=== PATIENT | male | born 1940 | race Caucasian/White ===

== ENCOUNTER 2023-08-05 15:09 | Inpatient (IN) ==
[2023-08-05] MEDS ORDERED: Enoxaparin 40 MG/0.4 ML SYR SUBCUT SCH (16:00)
[2023-08-05 17:03] LABS: ABS Lymphocytes 1.2 10^3/uL (1.0-4.8); ABS Monocytes 0.9 10^3/uL (0.0-1.1); ABS Neutrophils 7.9 10^3/uL (1.5-7.6); ABS Nucleated RBC 0.02 10^3/ul; Eosinophil % 0.3 %; Hematocrit 41.5 % (38-53); Hemoglobin 14.4 g/dL (13.2-16.3); Lymphocyte % 12.3 %; Mean Corpuscular Hemoglobin 30.5 pg (27-33); Mean Corpuscular Hgb Conc 34.6 g/dL (31-36); Mean Corpuscular Volume 88.2 fL (80-97); Mean Platelet Volume 8.5 fL (7.5-11.2); Nucleated Red Blood Cells % 0.2 %/100WBC (0.0-0.8); Platelet Count 327 10^3/uL (150-450); Red Blood Count 4.71 10^6/uL (4.06-5.63); Red Cell Distribution Width 13.7 % (12-17)
[2023-08-05 17:47] LABS: Anion Gap 15 mmol/L (2-16); CO2 Carbon Dioxide 19 mmol/L (22-32); Calcium 9.2 mg/dL (8.6-10.3); Chloride 101 mmol/L (101-111); Sodium 135 mmol/L (135-145)
[2023-08-05 17:53] LABS: Blood Urea Nitrogen 35 mg/dL (6-24); Cholesterol 166 mg/dL; Creatinine, Serum 1.33 mg/dL (0.67-1.17); Glucose 115 mg/dL (70-100); HDL Cholesterol 41.2 mg/dL; High Sens Troponin Baseline 3396 pg/mL (<20); LDL Cholesterol 105 mg/dL; Triglycerides 97 mg/dL; eGFR CKD-EPI 52.7 (>60)
[2023-08-05 18:17] LABS: CRP High Sensitivity > 80.00 mg/L (<2.00)
[2023-08-05] MEDS: Aspirin EC 81 mg TAB.EC (enteric coated) PO SCH (20:40)
[2023-08-05] MEDS: Enoxaparin 100 MG/ML SYR SUBCUT SCH (20:40)
[2023-08-05 21:14] LABS: High Sensitivity Troponin 1 Hr 3248 pg/mL (<20)
[2023-08-05 23:15] LABS: TSH Ultra Thyroid Stim Horm 4.89 mcIU/mL (0.34-5.60)
[2023-08-05 23:21] LABS: Ferritin 224.8 ng/mL (24-336)
[2023-08-06 06:10] LABS: ABS Basophils 0.1 10^3/uL (0.0-0.1); ABS Eosinophils 0.3 10^3/uL (0.0-0.5); ABS Lymphocytes 1.5 10^3/uL (1.0-4.8); ABS Monocytes 0.8 10^3/uL (0.0-1.1); ABS Neutrophils 4.9 10^3/uL (1.5-7.6); ABS Nucleated RBC 0.01 10^3/ul; Eosinophil % 4.6 %; Hematocrit 41.3 % (38-53); Hemoglobin 14.4 g/dL (13.2-16.3); Lymphocyte % 20.1 %; Mean Corpuscular Hemoglobin 30.6 pg (27-33); Mean Corpuscular Hgb Conc 34.9 g/dL (31-36); Mean Corpuscular Volume 87.6 fL (80-97); Mean Platelet Volume 8.3 fL (7.5-11.2); Nucleated Red Blood Cells % 0.1 %/100WBC (0.0-0.8); Platelet Count 313 10^3/uL (150-450); Red Blood Count 4.71 10^6/uL (4.06-5.63); Red Cell Distribution Width 13.9 % (12-17); White Blood Count 7.7 10^3/uL (3.6-10.2)
[2023-08-06 06:42] LABS: Calcium 8.8 mg/dL (8.6-10.3); Creatinine, Serum 1.31 mg/dL (0.67-1.17); Magnesium 2.1 mg/dL (1.9-2.7); Potassium 3.8 mmol/L (3.5-5.0); eGFR CKD-EPI 53.7 (>60)
[2023-08-06] MEDS: Enoxaparin 100 MG/ML SYR SUBCUT SCH (09:16)
[2023-08-06] MEDS: Aspirin EC 81 mg TAB.EC (enteric coated) PO SCH (09:17)
[2023-08-06] MEDS ORDERED: Fluticasone NASAL SPRAY 50MCG 16 gm SPRAY BTL BOTH NARES ONE (11:06)
[2023-08-06] MEDS: Enoxaparin 80 MG/0.8 ML SYR SUBCUT SCH (20:16)
[2023-08-07 07:06] LABS: Calcium 8.7 mg/dL (8.6-10.3); Creatinine, Serum 1.44 mg/dL (0.67-1.17); Magnesium 2.2 mg/dL (1.9-2.7); eGFR CKD-EPI 47.9 (>60)
[2023-08-07 07:12] LABS: Potassium 4.2 mmol/L (3.5-5.0)
[2023-08-07] MEDS: Aspirin EC 81 mg TAB.EC (enteric coated) PO SCH (08:43)
[2023-08-07] MEDS: Enoxaparin 80 MG/0.8 ML SYR SUBCUT SCH (08:45)
[2023-08-07] MEDS ORDERED: Al Hydrox/Mg Hydrox/Simet LIQ 30 ML UDC PO PRN (22:22)
[2023-08-07 22:52] LABS: High Sensitivity Troponin 1 Hr 1070 pg/mL (<20)
[2023-08-08 06:30] LABS: Activated Partial Thrombo Time 33.5 seconds (26.0-38.0); INR 1.14 (0.83-1.13)
[2023-08-08 06:42] LABS: Creatinine, Serum 1.35 mg/dL (0.67-1.17); Magnesium 2.2 mg/dL (1.9-2.7); Potassium 3.8 mmol/L (3.5-5.0); eGFR CKD-EPI 51.8 (>60)
[2023-08-08] MEDS ORDERED: Midazolam 5 mg/5 ml VIAL 1 mg/ml 5 ml VIAL (5 mg) ONE (08:35)
[2023-08-08] MEDS ORDERED: Heparin 1,000 UNIT/ML 10 ml (10,000 UNITS) CATHLAB/DIALYSIS ONE (08:35)
[2023-08-08] MEDS ORDERED: Heparin 2 UNITS/ML 1000 mls 1,000 ML IV ONE ×2 (08:35→08:49)
[2023-08-08] MEDS ORDERED: fentaNYL 100 mcg/2 ml 50 MCG/ML VIAL ONE (08:35)
[2023-08-08] MEDS ORDERED: nitroGLYCERIN DRIP 25,000 MCG/250 ML BTL ONE (08:35)
[2023-08-08] MEDS ORDERED: Lidocaine 1% MPF 5 ML VIAL ONE (08:36)
[2023-08-08] MEDS ORDERED: niCARdipine 0.1MG/ML IVPREMIX 20 MG/200 ML BAG IV ONE (08:36)
[2023-08-08] MEDS ORDERED: Iohexol 350 (CONTRAST) 200 ML MDV IV ONE (08:36)
[2023-08-08] MEDS ORDERED: Midazolam 10 mg/10 ml VIAL 1 mg/ml 10 ml VIAL (10 mg) IV SLOW PU ONE (08:48)
[2023-08-08] MEDS ORDERED: Naloxone 0.4 mg VIAL 0.4 mg/ml 1 ml VIAL IV PUSH PRN (08:48)
[2023-08-08] MEDS ORDERED: Flumazenil 0.5 mg/5 ml 0.1 MG/ML 5 ml VIAL IV PRN (08:48)
[2023-08-08] MEDS ORDERED: fentaNYL 100 mcg/2 ml 50 MCG/ML VIAL IV SLOW PU ONE (08:48)
[2023-08-08] MEDS ORDERED: Iohexol 350 (CONTRAST) 100 ML PAK IV ONE (09:19)
[2023-08-08] MEDS: Aspirin EC 81 mg TAB.EC (enteric coated) PO SCH (10:11)
[2023-08-08 17:33] VITALS: BP 99/66
== END 2023-08-08 17:40 | disposition short-term general hospital (02) | DRG 282 ==
LOC: ED 15:09 → EDHOLD 15:19 → MED 16:28
PROVIDERS: ADMIT Internal Medicine; ATTEND Internal Medicine

== ENCOUNTER 2023-11-01 12:27 | Inpatient (IN) ==
[2023-11-01 13:01] LABS: INR 1.1 (0.83-1.13)
[2023-11-01 13:27] LABS: ABS Basophils 0.1 10^3/uL (0.0-0.1); ABS Eosinophils 0.1 10^3/uL (0.0-0.5); ABS Lymphocytes 0.6 10^3/uL (1.0-4.8); ABS Monocytes 0.8 10^3/uL (0.0-1.1); ABS Neutrophils 5.6 10^3/uL (1.5-7.6); Eosinophil % 1.4 %; Hematocrit 20.2 % (38-53); Hemoglobin 6.7 g/dL (13.2-16.3); Mean Corpuscular Hemoglobin 27.5 pg (27-33); Mean Corpuscular Hgb Conc 33.2 g/dL (31-36); Mean Corpuscular Volume 82.9 fL (80-97); Mean Platelet Volume 7.8 fL (7.5-11.2); Platelet Count 323 10^3/uL (150-450); Red Blood Count 2.44 10^6/uL (4.06-5.63); Red Cell Distribution Width 15.5 % (12-17); White Blood Count 7.1 10^3/uL (3.6-10.2)
[2023-11-01 13:46] LABS: Albumin 4.1 g/dL (3.2-5.2); Albumin/Globulin Ratio 1.5 (1-3); Calcium 9.3 mg/dL (8.6-10.3); Creatinine, Serum 1.48 mg/dL (0.67-1.17); Globulin 2.7 g/dL (2-4); Total Bilirubin 0.5 mg/dL (0.2-1.0); Total Protein 6.8 g/dL (6.4-8.9); eGFR CKD-EPI 46.4 (>60)
[2023-11-01 14:25] LABS: High Sensitivity Troponin 1 Hr 317 pg/mL (<20)
[2023-11-01] MEDS ORDERED: Pantoprazole VIAL 40 MG VIAL IV ONE (16:16)
[2023-11-02 07:00] LABS: Hemoglobin 8.4 g/dL (13.2-16.3); Mean Corpuscular Hemoglobin 28.4 pg (27-33); Mean Corpuscular Hgb Conc 33.7 g/dL (31-36); Mean Corpuscular Volume 84.2 fL (80-97); Mean Platelet Volume 7.6 fL (7.5-11.2); Platelet Count 275 10^3/uL (150-450); Red Blood Count 2.96 10^6/uL (4.06-5.63); Red Cell Distribution Width 15.3 % (12-17); White Blood Count 5.7 10^3/uL (3.6-10.2)
[2023-11-02 07:05] LABS: Calcium 8.5 mg/dL (8.6-10.3); Creatinine, Serum 1.35 mg/dL (0.67-1.17); Potassium 4.1 mmol/L (3.5-5.0); eGFR CKD-EPI 51.8 (>60)
[2023-11-02] MEDS ORDERED: NF:DAPAGLIFLOZIN 10 MG TAB (NF) PO SCH (09:00)
[2023-11-02] MEDS: Pantoprazole VIAL 40 MG VIAL IV SCH ×2 (09:53→20:00)
[2023-11-02] MEDS ORDERED: Etomidate 20 mg/10 ml 2 MG/ML 10 ml VIAL ONE (13:21)
[2023-11-02] MEDS ORDERED: fentaNYL 100 mcg/2 ml 50 MCG/ML VIAL ONE (13:25)
[2023-11-02] MEDS ORDERED: Midazolam 2 mg/2 ml VIAL 1 mg/ml 2 ml VIAL (2 mg) ONE (13:49)
[2023-11-02] MEDS ORDERED: PEG 3000 GI LAVAGE 1 GALLON PO ONE (16:43)
[2023-11-03 07:06] LABS: Hematocrit 25.5 % (38-53); Hemoglobin 8.5 g/dL (13.2-16.3); Mean Corpuscular Hemoglobin 27.9 pg (27-33); Mean Corpuscular Hgb Conc 33.5 g/dL (31-36); Mean Corpuscular Volume 83.3 fL (80-97); Mean Platelet Volume 7.4 fL (7.5-11.2); Platelet Count 269 10^3/uL (150-450); Red Blood Count 3.06 10^6/uL (4.06-5.63); Red Cell Distribution Width 15.5 % (12-17); White Blood Count 5.8 10^3/uL (3.6-10.2)
[2023-11-03] MEDS: Pantoprazole VIAL 40 MG VIAL IV SCH ×2 (09:29→20:28)
[2023-11-03 09:51] LABS: INR 1.07 (0.83-1.13)
[2023-11-03] MEDS ORDERED: Propofol 10 MG/ML 20 ML BTL ONE (12:00)
[2023-11-03] MEDS ORDERED: Ondansetron 4 mg VIAL 2 MG/ML 2 ml VIAL IV PRN (13:38)
[2023-11-03] MEDS ORDERED: Naloxone 0.4 mg VIAL 0.4 mg/ml 1 ml VIAL IV PRN (13:38)
[2023-11-03] MEDS ORDERED: Phenylephrine 40 mcg/mL 10mL (400mcg) SYRINGE ONE (14:08)
[2023-11-03 15:51] LABS: % Iron Saturation 9 % (15-55); .Transferrin 265 mg/dL (203-362); Iron 33 ug/dL (50-212); LDH 236 U/L (140-271); Total Iron Binding Capacity 371 mcg/dL (250-450); Unsaturated Iron Binding 338 ug/dL
[2023-11-03 16:11] LABS: Ferritin 26.4 ng/mL (24-336)
[2023-11-03 16:15] LABS: Folate > 20.00 ng/mL (5.90-24.80)
[2023-11-03 16:16] LABS: Vitamin B12 555 pg/mL (180-914)
[2023-11-04 06:54] LABS: Hematocrit 25.6 % (38-53); Hemoglobin 8.5 g/dL (13.2-16.3); Mean Corpuscular Hemoglobin 27.7 pg (27-33); Mean Corpuscular Hgb Conc 33.3 g/dL (31-36); Mean Corpuscular Volume 83.1 fL (80-97); Mean Platelet Volume 7.5 fL (7.5-11.2); Platelet Count 281 10^3/uL (150-450); Red Blood Count 3.08 10^6/uL (4.06-5.63); White Blood Count 5.5 10^3/uL (3.6-10.2)
[2023-11-04] MEDS: Pantoprazole VIAL 40 MG VIAL IV SCH (08:35)
[2023-11-04 10:12] VITALS: BP 125/61
[2023-11-04] MEDS ORDERED: Iron Sucrose 200 MG in NS 0.9% 100 ml BAG 100 ML IVPB ONE (14:30)
[2023-11-05] MEDS ORDERED: DAPAGLIFLOZIN 10 MG PO SCH (09:00)
== END 2023-11-04 14:24 | disposition home or self-care (01) | DRG 377 ==
LOC: ED 12:27 → EDHOLD 15:59 → MEDTELE 17:22
PROVIDERS: ADMIT Internal Medicine; ATTEND Internal Medicine
PROC: O.GIEGD (2023-11-02 13:35)